=== PATIENT | female | born 1960 | race Caucasian/White ===

== ENCOUNTER → 2018-01-08 15:28 | Outpatient (CLI) | payer OTHER, SELFPAY ==
--- NOTE | 2018-01-08 15:31 | DI.RAD.S_ITS ---
PROCEDURE: XR CHEST 2V INDICATIONS: cough TECHNIQUE: 2 views of the chest were acquired. COMPARISON: None. FINDINGS: Surgical changes and devices: None. Lungs and pleura: No pleural effusions or pneumothorax. Lungs are clear. Mediastinum: Mediastinal contours are normal. Heart size is normal. Bones and chest wall: No suspicious bony abnormalities. Soft tissues appear unremarkable. IMPRESSION: Normal for age, source of current symptoms is not seen. Dictated by: Nitesh Ashraf M.D. on 01/08/2018 at 15:42 Approved by: Nitesh Ashraf M.D. on 01/08/2018 at 15:42
== END ==
PROVIDERS: PCP Family Medicine; Visit Provider Physician Assistant
DX: R05 Cough (principal)
CPT/HCPCS: 71046

== ENCOUNTER → 2020-10-06 07:04 | Outpatient (CLI) | payer OTHER, SELFPAY ==
[2020-10-06 08:22] LABS: Hematocrit 45.7 % (36-46); Hemoglobin 15.7 g/dL (12.0-16.0); Mean Corpuscular HGB Conc 34.5 % (30-36); Mean Corpuscular Hemoglobin 32.7 PG (26-34); Mean Corpuscular Volume 94.9 fL (80-100); Platelet Count 313 X10^3/uL (150-400); Red Blood Cell Count 4.81 X10^6/uL (4.0-5.2); Red Cell Distribution Width 13.4 % (11.6-14.8); White Blood Cell Count 6.8 X10^3/uL (4.5-11.0)
[2020-10-06 08:34] LABS: Alanine Aminotransferase 20 IU/L (<35); Albumin 4.1 g/dL (3.5-5.0); Albumin Globulin Ratio 1.4 (1.0-2.8); Alkaline Phosphatase 98 U/L (38-126); Aspartate Aminotransferase 25 IU/L (14-36); BUN Creatinine Ratio 14.3 (6-22); Bilirubin Total 0.4 mg/dL (0.2-1.3); Blood Urea Nitrogen 11 mg/dL (7-17); Calcium 9.8 mg/dL (8.4-10.2); Carbon Dioxide 30 mmol/L (22-32); Chloride 101 mmol/L (98-107); Cholesterol 276 mg/dL (140-199); Estimated Glomerular Filt Rate > 60.0 mL/min (>60); Glucose 116 mg/dL (80-110); HDL Cholesterol 75 mg/dL (40-60); HEMOLYSIS < 15 (0-50); LDL Cholesterol Calculated 174 mg/dL (<100); Potassium 5.1 mmol/L (3.4-5.1); Sodium 136 mmol/L (137-145); Total Protein 7.1 g/dL (6.3-8.2); Triglycerides 134 mg/dL (35-150)
[2020-10-06 11:30] LABS: Hemoglobin A1C% w Est Avg Glu 5.7 % (4.0-6.0)
== END ==
PROVIDERS: Family Provider Family Medicine; PCP Nurse Practitioner Family; Referring Provider Nurse Practitioner Family; Visit Provider Nurse Practitioner Family
DX: Z00.00 Encounter for general adult medical examination without abnormal findings (principal); Z13.6 Encounter for screening for cardiovascular disorders; R73.01 Impaired fasting glucose
CPT/HCPCS: 36415; 80053; 80061; 83036; 85027

== ENCOUNTER → 2020-11-23 08:23 | Outpatient (CLI) | payer OTHER, SELFPAY ==
--- NOTE | 2020-11-23 08:25 | DI.MG.S_ITS ---
BILATERAL DIGITAL SCREENING MAMMOGRAM 3D/2D WITH CAD: 11/23/2020 CLINICAL: Routine screening. Family history of breast cancer. Comparison is made to exams dated: 06/06/2017 mammogram, 03/28/2011 mammogram, and 06/23/2009 mammogram - [facility]. There are scattered fibroglandular elements in both breasts. Current study was also evaluated with a Computer Aided Detection (CAD) system. There is a 1.2 cm x 1.8 cm oval mass with a circumscribed margin in the right breast at 10 o'clock anterior depth 2.5 cm from the nipple. There also is an oval mass with a circumscribed margin in the right axillary tail. No other significant masses, calcifications, or other findings are seen in either breast. IMPRESSION: INCOMPLETE: NEEDS ADDITIONAL IMAGING EVALUATION The 1.2 cm x 1.8 cm oval mass in the right breast at 10 o'clock anterior depth is consistent with a cyst or a solid mass and is indeterminate. Additional views with possible ultrasound are recommended. The oval mass in the right axillary tail is consistent with a cyst or a solid mass and is indeterminate. Additional views with possible ultrasound are recommended. This exam was interpreted at Station ID: [id number]. NOTE: For mammograms, a report in lay terms will be sent to the patient. Approximately 15% of breast malignancies will not be visualized mammographically. In the management of a palpable breast mass, a negative mammogram must not discourage biopsy of a clinically suspicious lesion. Electronically Signed By: Chaitanya Andino acr/:11/23/2020 10:50:16 letter sent: Additional Imaging Needed ACR BI-RADS Category 0: Incomplete 3340F
== END ==
PROVIDERS: Family Provider Family Medicine; PCP Nurse Practitioner Family; Referring Provider Nurse Practitioner Family; Visit Provider Nurse Practitioner Family
DX: Z12.31 Encounter for screening mammogram for malignant neoplasm of breast (principal); Z80.3 Family history of malignant neoplasm of breast
CPT/HCPCS: 77063; 77067

== ENCOUNTER → 2020-12-12 13:56 | Outpatient (CLI) | payer OTHER, SELFPAY ==
--- NOTE | 2020-12-12 13:57 | DI.MG.S_ITS ---
UNILATERAL RIGHT DIGITAL DIAGNOSTIC MAMMOGRAM 3D/2D: 12/12/2020 CLINICAL: Additional evaluation requested from prior study. Comparison is made to exams dated: 11/23/2020 mammogram, 06/18/2017 ultrasound, and 06/06/2017 mammogram - [facility]. There are scattered fibroglandular elements in right breast. There is a 2.1 cm oval equal density mass with an obscured and circumscribed margin in the right breast at 9 o'clock anterior depth. There also is a 1.3 cm oval low density mass with an indistinct and circumscribed margin in the right breast at 9 o'clock posterior depth. No other significant masses or calcifications are seen in the breast. IMPRESSION: INCOMPLETE: NEEDS ADDITIONAL IMAGING EVALUATION The 2.1 cm oval equal density mass in the right breast at 9 o'clock anterior depth is indeterminate. An ultrasound is recommended. The 1.3 cm oval low density mass in the right breast at 9 o'clock posterior depth is indeterminate. An ultrasound is recommended. Ultrasound will be performed immediately following the current exam. This exam was interpreted at Station ID: [id number]. NOTE: For mammograms, a report in lay terms will be sent to the patient. Approximately 15% of breast malignancies will not be visualized mammographically. In the management of a palpable breast mass, a negative mammogram must not discourage biopsy of a clinically suspicious lesion. Electronically Signed By: Kenan Simms M.D. dddamian/:12/12/2020 14:34:09 ACR BI-RADS Category 0: Incomplete 3340F
--- NOTE | 2020-12-12 15:07 | DI.US.S_ITS ---
LIMITED ULTRASOUND OF RIGHT BREAST: 12/12/2020 CLINICAL: Patient returns today to evaluate two focal asymmetries in the right breast. Comparison is made to exams dated: 12/12/2020 mammogram, 06/18/2017 ultrasound, 11/23/2020 mammogram, 06/06/2017 mammogram, 03/28/2011 mammogram, and 06/23/2009 mammogram - [facility]. Color flow and real-time ultrasound of the right breast 9 o'clock region were performed on the areas of interest. There is a 1 cm x 0.8 cm x 0.4 cm oval cyst in the right breast at 9 o'clock anterior depth 3 cm from the nipple. This oval cyst is hypoechoic with a well-defined boundary and internal echoes. This correlates with mammography findings. Color flow imaging demonstrates that there is no vascularity present. There also is a 1.6 cm x 0.7 cm x 0.9 cm oval cyst with a thickened wall in the right breast at 9 o'clock posterior depth 17 cm from the nipple. This oval cyst is hypoechoic with a well-defined boundary and internal echoes. This correlates with mammography findings. Color flow imaging demonstrates that there is no vascularity present. Additionally, there is a 1 cm x 0.4 cm x 0.8 cm oval cyst in the right breast at 9 o'clock posterior depth. This oval cyst is hypoechoic with a well-defined boundary, internal echoes, and posterior acoustic enhancement. This correlates with mammography findings. Color flow imaging demonstrates that there is no vascularity present. In addition, there is a benign 1.7 cm x 0.9 cm x 1.7 cm oval cyst in the right breast at 9 o'clock anterior depth 3 cm from the nipple. This oval cyst is anechoic with a well-defined boundary and posterior acoustic enhancement. This correlates with mammography findings. Color flow imaging demonstrates that there is no vascularity present. IMPRESSION: PROBABLY BENIGN The 1 cm x 0.8 cm x 0.4 cm oval cyst in the right breast at 9 o'clock anterior depth is consistent with a complicated cyst and is probably benign. A follow-up ultrasound in 6 months is recommended. The 1.6 cm x 0.7 cm x 0.9 cm oval cyst in the right breast at 9 o'clock posterior depth is consistent with a complicated cyst and is probably benign. A follow-up ultrasound in 6 months is recommended. The 1 cm x 0.4 cm x 0.8 cm oval cyst in the right breast at 9 o'clock posterior depth is consistent with a complicated cyst and is probably benign. A follow-up ultrasound in 6 months is recommended. The 1.7 cm x 0.9 cm x 1.7 cm oval cyst in the right breast at 9 o'clock anterior depth is consistent with a simple cyst and is benign. A follow-up ultrasound in 6 months is recommended to demonstrate stability. This exam was interpreted at Station ID: [id number]. Electronically Signed By: Kenan Simms M.D. dddamian/:12/12/2020 15:52:31 letter sent: Followup Recommended Ultrasound BI-RADS: 3 Probably benign
== END ==
PROVIDERS: Family Provider Family Medicine; PCP Nurse Practitioner Family; Referring Provider Nurse Practitioner Family; Visit Provider Nurse Practitioner Family
DX: R92.8 Other abnormal and inconclusive findings on diagnostic imaging of breast (principal); N60.01 Solitary cyst of right breast
CPT/HCPCS: 76642; 77065; G0279

== ENCOUNTER → 2020-12-21 14:42 | Outpatient (CLI) | payer OTHER, SELFPAY ==
--- NOTE | 2020-12-21 14:43 | DI.RAD.S_ITS ---
PROCEDURE: XR HUMERUS LT 2V INDICATIONS: left arm pain TECHNIQUE: 2 views of the humerus were acquired. COMPARISON: None. FINDINGS: Bones: No acute, displaced fracture or dislocation. Osteophytosis about the AC joint. No suspicious bony lesions. Soft tissues: No suspicious soft tissue calcifications. IMPRESSION: No acute abnormality. Dictated by: Cristóbal Anderson M.D. on 12/21/2020 at 15:16 Approved by: Cristóbal Anderson M.D. on 12/21/2020 at 15:17
== END ==
PROVIDERS: Family Provider Family Medicine; PCP Nurse Practitioner Family; Referring Provider Nurse Practitioner Family; Visit Provider Nurse Practitioner Family
DX: M79.602 Pain in left arm (principal)
CPT/HCPCS: 73060

== ENCOUNTER → 2021-05-24 07:01 | Outpatient (CLI) | payer OTHER, SELFPAY ==
[2021-05-24 08:37] LABS: Cholesterol 292 mg/dL (140-199); HDL Cholesterol 87 mg/dL (40-60); LDL Cholesterol Calculated 170 mg/dL (<100); Triglycerides 174 mg/dL (35-150)
--- NOTE | 2021-05-24 09:41 | DI.US.S_ITS ---
LIMITED ULTRASOUND OF RIGHT BREAST: 05/24/2021 CLINICAL: 6 month follow-up of cysts. Comparison is made to exams dated: 12/12/2020 ultrasound, 12/12/2020 mammogram, 11/23/2020 mammogram, and 06/18/2017 [facility]. Color flow and real-time ultrasound of the right breast 9 o'clock region were performed. Keller scale images of the real-time examination were reviewed. There is a 1 cm x 0.8 cm x 0.4 cm oval cyst in the right breast at 9 o'clock anterior depth 3 cm from the nipple. This oval cyst is hypoechoic with a well-defined boundary and internal echoes. Color flow imaging demonstrates that there is no vascularity present. This is stable. There also is a 1.6 cm x 0.5 cm x 1.5 cm oval cyst with a thickened wall in the right breast at 9 o'clock posterior depth 17 cm from the nipple. This oval cyst is hypoechoic with a well-defined boundary and internal echoes. Color flow imaging demonstrates that there is no vascularity present. This has not significantly changed. Additionally, there is a 1.1 cm x 0.4 cm x 0.7 cm oval cyst in the right breast at 9 o'clock posterior depth. This oval cyst is hypoechoic with a well-defined boundary, internal echoes, and posterior acoustic enhancement. Color flow imaging demonstrates that there is no vascularity present. This is stable. In addition, there is a benign 1.6 cm oval cyst in the right breast at 9 o'clock anterior depth 3 cm from the nipple. This is stable and is a simple cyst. IMPRESSION: PROBABLY BENIGN Minimally complicated and simple cysts in the right breast are relatively stable. The 1 cm cyst in the right breast at 9 o'clock anterior depth is consistent with a complicated cyst and is probably benign. The 1.6 cm cyst in the right breast at 9 o'clock posterior depth is consistent with a complicated cyst and is probably benign. The 1.1 cm cyst in the right breast at 9 o'clock posterior depth is consistent with a complicated cyst and is probably benign. . The 1.7 cm cyst in the right breast at 9 o'clock anterior depth is consistent with a simple cyst and is benign. A follow-up right ultrasound in 6 months is recommended to demonstrate stability. Future imaging is recommended as follows: 12/12/2021 mammogram. Findings and recommendations were conveyed to the patient at time of exam. This exam was interpreted at Station ID: [id number]. Electronically Signed By: Leana lópez/:05/24/2021 10:27:40 letter sent: Followup Recommended Ultrasound BI-RADS: 3 Probably benign
== END ==
PROVIDERS: Family Provider Family Medicine; PCP Nurse Practitioner Family; Referring Provider Nurse Practitioner Family; Visit Provider Nurse Practitioner Family
DX: R92.8 Other abnormal and inconclusive findings on diagnostic imaging of breast (principal); N60.01 Solitary cyst of right breast; E78.2 Mixed hyperlipidemia
CPT/HCPCS: 36415; 76642; 80061

== ENCOUNTER → 2021-09-16 11:57 | Outpatient (CLI) | payer OTHER, SELFPAY ==
--- NOTE | 2021-09-16 11:59 | DI.RAD.S_ITS ---
PROCEDURE: XR KNEE LT 3V INDICATIONS: left knee pain TECHNIQUE: 3 views of the knee were acquired. COMPARISON: None. FINDINGS: Bones: No fractures or dislocations. No suspicious bony lesions. Mild tricompartmental degenerative changes. Soft tissues: Large suprapatellar joint effusion. No suspicious soft tissue calcifications. IMPRESSION: 1. Mild tricompartmental degenerative changes. 2. Large suprapatellar joint effusion. Dictated by: Chaitanya Andino M.D. on 09/16/2021 at 12:04 Approved by: Chaitanya Andino M.D. on 09/16/2021 at 12:06
== END ==
PROVIDERS: Family Provider Family Medicine; PCP Family Medicine; Referring Provider Family Medicine; Visit Provider Family Medicine
DX: M25.462 Effusion, left knee (principal); M25.562 Pain in left knee; G89.29 Other chronic pain
CPT/HCPCS: 73562

== ENCOUNTER → 2021-09-26 07:10 | Outpatient (CLI) | payer OTHER, SELFPAY ==
[2021-09-26 08:45] LABS: Hematocrit 45.6 % (36-46); Hemoglobin 15.9 g/dL (12.0-16.0); Mean Corpuscular HGB Conc 34.9 % (30-36); Mean Corpuscular Hemoglobin 34.7 PG (26-34); Mean Corpuscular Volume 99.4 fL (80-100); Platelet Count 271 X10^3/uL (150-400); Red Blood Cell Count 4.59 X10^6/uL (4.0-5.2); Red Cell Distribution Width 13.3 % (11.6-14.8)
[2021-09-26 09:38] LABS: Alanine Aminotransferase 23 IU/L (<35); Albumin 3.9 g/dL (3.5-5.0); Albumin Globulin Ratio 1.3 (1.0-2.8); Alkaline Phosphatase 103 U/L (38-126); Aspartate Aminotransferase 27 IU/L (14-36); BUN Creatinine Ratio 15.3 (6-22); Bilirubin Total 0.6 mg/dL (0.2-1.3); Blood Urea Nitrogen 11 mg/dL (7-17); Calcium 8.9 mg/dL (8.4-10.2); Carbon Dioxide 32 mmol/L (22-32); Chloride 98 mmol/L (98-107); Cholesterol 249 mg/dL (140-199); Estimated Glomerular Filt Rate > 60 mL/min (>60); Glucose 111 mg/dL (80-110); HDL Cholesterol 84 mg/dL (40-60); HEMOLYSIS < 15 (0-50); LDL Cholesterol Calculated 141 mg/dL (<100); Potassium 4.7 mmol/L (3.4-5.1); Sodium 136 mmol/L (137-145); Total Protein 6.9 g/dL (6.3-8.2); Triglycerides 118 mg/dL (35-150)
[2021-09-26 11:04] LABS: TSH w/ Reflex to FT4 1.33 uIU/mL (0.47-4.68)
[2021-09-26 15:24] LABS: Hemoglobin A1C% w Est Avg Glu 5.9 % (4.0-6.0)
== END ==
PROVIDERS: Family Provider Family Medicine; PCP Family Medicine; Referring Provider Family Medicine; Visit Provider Family Medicine
DX: F32.9 Major depressive disorder, single episode, unspecified (principal); F41.9 Anxiety disorder, unspecified; Z00.00 Encounter for general adult medical examination without abnormal findings; E78.2 Mixed hyperlipidemia; R73.9 Hyperglycemia, unspecified; Z13.6 Encounter for screening for cardiovascular disorders
CPT/HCPCS: 36415; 80053; 80061; 83036; 84443; 85027

== ENCOUNTER → 2021-10-19 15:21 | Outpatient (CLI) | payer OTHER, SELFPAY ==
--- NOTE | 2021-10-19 15:22 | DI.CT.S_ITS ---
PROCEDURE: CT CHEST WO CON INDICATIONS: chest girth with rapid increase w/increased weight gain TECHNIQUE: Noncontrast 2.0-2.5 mm thick sections acquired from the pulmonary apices to the posterior costophrenic angles. 7 mm thick axial MIP, and 5 mm coronal and sagittal reformats were then acquired. A low radiation dose technique was utilized. COMPARISON: None. FINDINGS: Image quality: Diagnostic, given the low radiation dose technique. Lungs and pleura: No suspicious pulmonary nodules are seen. No focal infiltrates are seen. No pneumothorax or pleural effusions are seen. The central airways are patent. Mediastinum: Heart size is normal. No pericardial effusion. No mediastinal adenopathy by size criteria. Thoracic aorta and central pulmonary arteries are normal in size. Atherosclerotic calcification is noted. Esophagus is normal in caliber. No hiatal hernia. Bones and chest wall: No suspicious bony lesions. No vertebral body compression fractures. Age-appropriate bony degenerative changes are seen. No axillary or supraclavicular adenopathy by size criteria. Thyroid gland demonstrates no significant noncontrast abnormality. Abdomen: Visualized upper abdomen solid organs and bowel loops appear normal in the absence of contrast. IMPRESSION: No suspicious pulmonary nodules are seen. LUNG-RADS 1; Recommend annual screening for lung cancer with low dose CT, as long as the patient meets the screening criteria. Dictated by: Ousmane Moody M.D. on 10/19/2021 at 16:26 Approved by: Ousmane Moody M.D. on 10/19/2021 at 16:27
== END ==
PROVIDERS: Family Provider Family Medicine; PCP Family Medicine; Referring Provider Family Medicine; Visit Provider Family Medicine
DX: R92.8 Other abnormal and inconclusive findings on diagnostic imaging of breast (principal); R63.5 Abnormal weight gain
CPT/HCPCS: 71250

== ENCOUNTER → 2021-11-09 10:10 | Outpatient (CLI) | payer OTHER, SELFPAY ==
--- NOTE | 2021-11-09 10:12 | DI.US.S_ITS ---
LIMITED ULTRASOUND OF RIGHT BREAST: 11/09/2021 CLINICAL: Short term follow up of the right breast. No prior exams were available for comparison. Color flow and real-time ultrasound of the right breast 9 o'clock region were performed on the areas of interest. Keller scale images of the real-time examination were reviewed. There is a cyst in the right breast at 9 o'clock anterior depth. This cyst is anechoic. There also is a stable cyst in the right breast at 9 o'clock posterior depth. This correlates with mammography findings. Additionally, there is an oval cyst in the right breast at 9 o'clock posterior depth. IMPRESSION: BENIGN There is no sonographic evidence of malignancy. The cyst in the right breast at 9 o'clock anterior depth is consistent with a simple cyst and is benign. The stable cyst in the right breast at 9 o'clock posterior depth is consistent with a simple cyst and is benign. The oval cyst in the right breast at 9 o'clock posterior depth is consistent with a simple cyst and is benign. Return to annual mammogram screening schedule is recommended. This exam was interpreted at Station ID: [id number]. Electronically Signed By: Susan daniels/:11/09/2021 12:01:39 letter sent: Normal Exam Ultrasound BI-RADS: 2 Benign
--- NOTE | 2021-11-09 10:12 | DI.MG.S_ITS ---
BILATERAL DIGITAL DIAGNOSTIC MAMMOGRAM 3D/2D: 11/09/2021 CLINICAL: Short term follow up of the right breast, due for bilateral imaging. Comparison is made to exams dated: 05/24/2021 ultrasound, 12/12/2020 mammogram, 12/12/2020 ultrasound, 11/23/2020 mammogram, and 06/18/2017 ultrasound - [facility]. There are scattered areas of fibroglandular density in both breasts (category b / 25%-50% glandular tissue). There is a stable oval mass in the right breast at 9 o'clock anterior depth. There also is a mass in the right breast at 9 o'clock posterior depth. No other significant masses, calcifications, or other findings are seen in either breast. IMPRESSION: INCOMPLETE: NEEDS ADDITIONAL IMAGING EVALUATION The stable oval mass in the right breast at 9 o'clock anterior depth is indeterminate. The mass in the right breast at 9 o'clock posterior depth is indeterminate. A targeted ultrasound of the right breast is recommended and will be performed immediately following this exam. Based on the Tyrer Cuzick model (a risk assessment model) the patient's lifetime risk is 10.9% and her 10 year risk is 4.9%. According to the ACR, ACS, and NCCN guidelines, an annual breast MRI exam along with mammogram is recommended if the patient's lifetime risk is 20% or greater. This exam was interpreted at Station ID: [id number]. NOTE: For mammograms, a report in lay terms will be sent to the patient. Approximately 15% of breast malignancies will not be visualized mammographically. In the management of a palpable breast mass, a negative mammogram must not discourage biopsy of a clinically suspicious lesion. Electronically Signed By: Susan Scherer M.D. lk/:11/09/2021 10:54:05 ACR BI-RADS Category 0: Incomplete 3340F
== END ==
PROVIDERS: Family Provider Family Medicine; PCP Family Medicine; Referring Provider Family Medicine; Visit Provider Family Medicine
DX: R92.8 Other abnormal and inconclusive findings on diagnostic imaging of breast (principal); N60.01 Solitary cyst of right breast
CPT/HCPCS: 76642; 77066; G0279

== ENCOUNTER → 2022-12-28 10:51 | Outpatient (CLI) | payer OTHER, SELFPAY ==
--- NOTE | 2022-12-28 | DI.MG.S_ITS ---
BILATERAL DIGITAL SCREENING MAMMOGRAM 3D/2D WITH CAD: 12/28/2022 CLINICAL: Routine screening. Family history of breast cancer. Comparison is made to exams dated: 11/09/2021 mammogram, 12/12/2020 mammogram, and 11/23/2020 mammogram - [facility]. There are scattered areas of fibroglandular density in both breasts (category b / 25%-50% glandular tissue). Current study was also evaluated with a Computer Aided Detection (CAD) system. There are benign calcifications in both breasts. No significant masses, calcifications, or other findings are seen in either breast. There has been no significant interval change. IMPRESSION: BENIGN There is no mammographic evidence of malignancy. A 1 year screening mammogram is recommended. Based on the Tyrer Cuzick model (a risk assessment model) the patient's lifetime risk is 10.5% and her 10 year risk is 4.9%. According to the ACR, ACS, and NCCN guidelines, an annual breast MRI exam along with mammogram is recommended if the patient's lifetime risk is 20% or greater. This exam was interpreted at Station ID: [id number]. NOTE: For mammograms, a report in lay terms will be sent to the patient. Approximately 15% of breast malignancies will not be visualized mammographically. In the management of a palpable breast mass, a negative mammogram must not discourage biopsy of a clinically suspicious lesion. Electronically Signed By: Susan daniels/radha:12/28/2022 14:43:49 letter sent: Normal Exam ACR BI-RADS Category 2: Benign Finding(s) 3342F
== END ==
PROVIDERS: Family Provider Family Medicine; PCP Family Medicine; Referring Provider Family Medicine; Visit Provider Family Medicine
DX: Z12.31 Encounter for screening mammogram for malignant neoplasm of breast (principal); Z80.3 Family history of malignant neoplasm of breast
CPT/HCPCS: 77063; 77067

== ENCOUNTER → 2023-04-10 09:05 | Outpatient (CLI) | payer OTHER, SELFPAY ==
[2023-04-10 10:21] LABS: Add Manual Diff / Slide Review NO; Basophils Absolute Auto 100 /uL (0-100); Eosinophils Absolute Auto 100 /uL (0-450); Eosinophils Percent Auto 0.9 % (2-4); Hemoglobin 15.8 g/dL (12.0-16.0); Lymphocytes Absolute Auto 1200 /uL (1100-4500); Lymphocytes Percent Auto 20.1 % (25-40); Mean Corpuscular HGB Conc 34.4 % (30-36); Mean Corpuscular Hemoglobin 35.3 PG (26-34); Mean Corpuscular Volume 102.6 fL (80-100); Monocytes Absolute Auto 500 /uL (0-900); Monocytes Percent Auto 8.1 % (3-14); Neutrophils Absolute Auto 4200 /uL (1500-7000); Neutrophils Percent Auto 69.9 % (50-75); Platelet Count 318 X10^3/uL (150-400); Red Blood Cell Count 4.48 X10^6/uL (4.0-5.2); Red Cell Distribution Width 13.5 % (11.6-14.8)
[2023-04-10 10:56] LABS: Alanine Aminotransferase 22 IU/L (<35); Albumin Globulin Ratio 1.1 (1.0-2.8); Alkaline Phosphatase 106 U/L (38-126); Aspartate Aminotransferase 25 IU/L (14-36); BUN Creatinine Ratio 13.2 (6-22); Bilirubin Total 0.6 mg/dL (0.2-1.3); Blood Urea Nitrogen 9 mg/dL (7-17); Calcium 9.7 mg/dL (8.4-10.2); Carbon Dioxide 34 mmol/L (22-32); Chloride 96 mmol/L (98-107); Cholesterol 270 mg/dL (140-199); Estimated Glomerular Filt Rate > 60 mL/min (>60); Globulin 3.6 g/dL (1.7-4.1); Glucose 105 mg/dL (80-110); HDL Cholesterol 86 mg/dL (40-60); HEMOLYSIS < 15 (0-50); LDL Cholesterol Calculated 156 mg/dL (<100); Potassium 4.8 mmol/L (3.4-5.1); Sodium 136 mmol/L (137-145); Total Protein 7.6 g/dL (6.3-8.2); Triglycerides 138 mg/dL (35-150)
[2023-04-10 11:23] LABS: Creatinine Urine Random 32.9 mg/dL
[2023-04-10 11:29] LABS: TSH w/ Reflex to FT4 0.99 uIU/mL (0.47-4.68)
[2023-04-10 11:50] LABS: Microalbumin Urine Random < 0.6 mg/dL (0-1.6)
== END ==
LOC: LAB 09:09
PROVIDERS: Family Provider Family Medicine; PCP Family Medicine; Referring Provider Family Medicine; Visit Provider Family Medicine
DX: E78.2 Mixed hyperlipidemia (principal); F41.9 Anxiety disorder, unspecified; I87.2 Venous insufficiency (chronic) (peripheral)
CPT/HCPCS: 36415; 80053; 80061; 82043; 82570; 84443; 85025

== ENCOUNTER → 2023-07-03 13:36 | Outpatient (CLI) | payer OTHER, SELFPAY ==
--- NOTE | 2023-07-03 13:37 | DI.CT.S_ITS ---
PROCEDURE: CT LUNG LOW DOSE SCREENING INDICATIONS: 30+ smoking hx TECHNIQUE: Noncontrast 2.0-2.5 mm thick sections acquired from the pulmonary apices to the posterior costophrenic angles. 7 mm thick axial MIP, and 5 mm coronal and sagittal reformats were then acquired. For radiation dose reduction, the following was used: automated exposure control, adjustment of mA and/or kV according to patient size. COMPARISON: [facility], CT, CT CHEST WO [facility], 10/19/2021, 15:42. FINDINGS: Image quality: Diagnostic. Lower Neck: No enlarged lymph nodes. Thyroid: No thyroid nodules which require sonographic follow up, per consensus guidelines. Axillae: No enlarged lymph nodes. Chest Wall: Unremarkable. Bones: Unremarkable. Lungs and Pleura: No pneumothorax or pleural effusions. No consolidation or suspicious nodules. mild dependent lower lobe pulmonary scarring, stable Heart: Heart size is normal. No pericardial effusion. Thoracic Vessels: The aorta and pulmonary arteries demonstrate normal size. Mediastinum and Ashley: No enlarged lymph nodes. Esophagus: No wall thickening. No hiatal hernia. Upper Abdomen: Visualized upper abdomen solid organs and bowel loops appear normal. IMPRESSION: No suspicious pulmonary nodules. LUNG-RADS 1; continued annual screening, if eligible. Approved by: Rojas Hinojosa M.D. on 07/03/2023 at 19:44
--- NOTE | 2023-07-03 13:37 | DI.RAD.S_ITS ---
PROCEDURE: XR DEXA AXIAL SKELETON INDICATIONS: post-menopausal COMPARISON: None. FINDINGS: Lumbar Spine: Bone mineral density 0.962 g/cm2, T score -0.8. Left Hip: Bone mineral density 0.794 g/cm2, T score -1.2. Left Femoral Neck: Bone mineral density 0.537 g/cm2, T score -2.8. Right Hip: Bone mineral density 0.836 g/cm2, T score -0.9. Right Femoral Neck: Bone mineral density 0.635 g/cm2, T score -1.9. Fracture Risk Calculation (when applicable): FRAX not provided due to osteoporosis. (T score greater or equal to -1.0 to: NORMAL) (T score from -1.1 to -2.4: OSTEOPENIA) (T score less than or equal to -2.5: OSTEOPOROSIS) IMPRESSION: Osteoporosis at the left femoral neck. Dictated by: Jd Andrews M.D. on 07/04/2023 at 11:29 Approved by: Jd Andrews M.D. on 07/04/2023 at 11:30
== END ==
LOC: CT 13:37
PROVIDERS: Family Provider Family Medicine; PCP Family Medicine; Referring Provider Family Medicine; Visit Provider Family Medicine
DX: F17.210 Nicotine dependence, cigarettes, uncomplicated (principal); Z78.0 Asymptomatic menopausal state; Z12.2 Encounter for screening for malignant neoplasm of respiratory organs; M81.0 Age-related osteoporosis without current pathological fracture
CPT/HCPCS: 71271; 77080

== ENCOUNTER → 2024-01-10 08:02 | Outpatient (CLI) | payer OTHER, SELFPAY ==
--- NOTE | 2024-01-10 | DI.MG.S_ITS ---
BILATERAL DIGITAL SCREENING MAMMOGRAM 3D/2D WITH CAD: 01/10/2024 CLINICAL: Routine screening. Family history of breast cancer. Comparison is made to exams dated: 12/28/2022 mammogram, 11/09/2021 mammogram, and 11/23/2020 mammogram - [facility]. There are scattered areas of fibroglandular density (category b / 25%-50% glandular tissue). Current study was also evaluated with a Computer Aided Detection (CAD) system. There are benign calcifications in both breasts. No significant masses, calcifications, or other findings are seen in either breast. There has been no significant interval change. IMPRESSION: BENIGN There is no mammographic evidence of malignancy. A 1 year screening mammogram is recommended. Based on the Tyrer Cuzick model (a risk assessment model) the patient's lifetime risk is 10.1% and her 10 year risk is 4.9%. According to the ACR, ACS, and NCCN guidelines, an annual breast MRI exam along with mammogram is recommended if the patient's lifetime risk is 20% or greater. This exam was interpreted at Station ID: [id number]. NOTE: For mammograms, a report in lay terms will be sent to the patient. Approximately 15% of breast malignancies will not be visualized mammographically. In the management of a palpable breast mass, a negative mammogram must not discourage biopsy of a clinically suspicious lesion. Electronically Signed By: Jd barone/radha:01/10/2024 14:39:37 letter sent: Normal Exam ACR BI-RADS Category 2: Benign
[2024-01-10 09:38] LABS: Add Manual Diff / Slide Review NO; Basophils Absolute Auto 100 /uL (0-100); Eosinophils Absolute Auto 0 /uL (0-450); Eosinophils Percent Auto 0.6 % (2-4); Hematocrit 45.5 % (36-46); Hemoglobin 15.6 g/dL (12.0-16.0); Lymphocytes Absolute Auto 1100 /uL (1100-4500); Lymphocytes Percent Auto 18.5 % (25-40); Mean Corpuscular HGB Conc 34.3 % (30-36); Mean Corpuscular Hemoglobin 36.2 PG (26-34); Mean Corpuscular Volume 105.6 fL (80-100); Monocytes Absolute Auto 500 /uL (0-900); Monocytes Percent Auto 7.6 % (3-14); Neutrophils Absolute Auto 4300 /uL (1500-7000); Neutrophils Percent Auto 72.3 % (50-75); Platelet Count 319 X10^3/uL (150-400); Red Blood Cell Count 4.31 X10^6/uL (4.0-5.2); Red Cell Distribution Width 14.3 % (11.6-14.8)
[2024-01-10 10:02] LABS: Cholesterol 304 mg/dL (140-199); Triglycerides 123 mg/dL (35-150)
[2024-01-10 10:19] LABS: HDL Cholesterol 119 mg/dL (40-60); LDL Cholesterol Calculated 160 mg/dL (<100)
[2024-01-10 10:50] LABS: Vitamin B12 249 pg/mL (239-931)
[2024-01-11 07:40] LABS: Apolipoprotein B 133 mg/dL (<90)
== END ==
PROVIDERS: Family Provider Family Medicine; PCP Family Medicine; Referring Provider Family Medicine; Visit Provider Family Medicine
DX: Z12.31 Encounter for screening mammogram for malignant neoplasm of breast (principal); E78.2 Mixed hyperlipidemia; Z80.3 Family history of malignant neoplasm of breast
CPT/HCPCS: 36415; 77063; 77067; 80061; 82172; 82607; 83695; 85025

== ENCOUNTER → 2024-09-17 09:38 | Outpatient (CLI) | payer MEDICARE, SELFPAY ==
[2024-09-17 10:33] LABS: Add Manual Diff / Slide Review NO; Hematocrit 45.2 % (36-46); Hemoglobin 15.5 g/dL (12.0-16.0); Lymphocytes Absolute Auto 1300 /uL (1100-4500); Mean Corpuscular HGB Conc 34.3 % (30-36); Mean Corpuscular Hemoglobin 34.3 PG (26-34); Mean Corpuscular Volume 100.0 fL (80-100); Platelet Count 304 X10^3/uL (150-400)
[2024-09-17 10:44] LABS: Cholesterol 265 mg/dL (140-199); HDL Cholesterol 74 mg/dL (40-60); Triglycerides 113 mg/dL (35-150)
[2024-09-17 11:49] LABS: Folate 7.2 ng/mL (2.76-20.0); Vitamin B12 247 pg/mL (239-931)
== END ==
PROVIDERS: Family Provider Family Medicine; PCP Family Medicine; Referring Provider Family Medicine; Visit Provider Family Medicine
DX: E78.2 Mixed hyperlipidemia (principal); F41.9 Anxiety disorder, unspecified
CPT/HCPCS: 36415; 80061; 82172; 82607; 82746; 85025

== ENCOUNTER → 2024-12-29 14:43 | Outpatient (CLI) | payer MEDICARE, SELFPAY ==
--- NOTE | 2024-12-29 14:44 | DI.CT.S_ITS ---
PROCEDURE: CT LUNG LOW DOSE SCREENING INDICATIONS: smoking hx TECHNIQUE: Noncontrast 2.0-2.5 mm thick sections acquired from the pulmonary apices to the posterior costophrenic angles. 7 mm thick axial MIP, and 5 mm coronal and sagittal reformats were then acquired. For radiation dose reduction, the following was used: automated exposure control, adjustment of mA and/or kV according to patient size. COMPARISON: [facility], CT, CT LUNG LOW DOSE SCREENING, 07/03/2023, 13:42. FINDINGS: Image quality: Diagnostic Lungs: No pleural effusion pneumothorax. No pulmonary edema or focal consolidation. No suspicious pulmonary nodule. Soft tissue/mediastinal findings: Mild calcification of the thoracic aorta. No thoracic aortic aneurysm. Enlargement of the main pulmonary artery, raising concern for pulmonary arterial hypertension. Heart is normal in size. No pericardial effusion. Severe calcification of the RCA. No mediastinal hilar, or axillary lymphadenopathy. Visualized upper abdomen: Marked thickening of the left adrenal gland, unchanged from prior exam. Bones: No suspicious lytic or blastic lesion. Bridging osteophytes of the thoracic spine, consistent with diffuse idiopathic skeletal hyperostosis. IMPRESSION: No suspicious pulmonary nodules. additional chronic findings described above. LUNG-RADS 1; continued annual screening, if eligible. Clinically Significant Non-pulmonary Findings: None. Dictated by: April Ochoa M.D. on 12/29/2024 at 16:05 Approved by: April Ochoa M.D. on 12/29/2024 at 16:14
--- NOTE | 2024-12-29 14:44 | DI.MG.S_ITS ---
MM screening mammo BI: 12/29/2024. BI-RADS: 2 CLINICAL: 64-year old female for bilateral screening mammogram. Tyrer-Cuzick lifetime risk of 8.7%. Current reported family history of breast cancer: mother. PRIOR EXAMS 01/10/2024, 12/28/2022, 11/09/2021, 05/24/2021. MAMMOGRAPHY TECHNIQUE: 2D and 3D (tomosynthesis) digital mammographic views obtained, with additional images as needed for full coverage. Current study was also evaluated with a Computer Aided Detection (CAD) system. DENSITY A. The breasts are almost entirely fatty. MAMMOGRAPHY FINDINGS Right: Benign-appearing masses and calcifications noted on the right. There are no suspicious masses, calcifications, or other findings in the breast. No significant change from comparison. Left: Benign-appearing calcifications noted on the left. There are no suspicious masses, calcifications, or other findings in the breast. No significant change from comparison. IMPRESSION: * No evidence of malignancy with benign findings. RECOMMENDATIONS Bilateral * Annual screening mammography. OVERALL ASSESSMENT CATEGORY BI-RADS-2: Benign. The [employer] recommends annual screening mammography beginning at age 40 for women with average risk of breast cancer. ELECTRONICALLY SIGNED: Leana Raya M.D. on 12/31/2024 at 01:10:03 PM PT Interpreting Station ID: [id number]
== END ==
LOC: MAMMO 14:44
PROVIDERS: PCP Family Medicine; Referring Provider Family Medicine; Visit Provider Family Medicine
DX: Z12.31 Encounter for screening mammogram for malignant neoplasm of breast (principal); F17.210 Nicotine dependence, cigarettes, uncomplicated; R92.313 Mammographic fatty tissue density, bilateral breasts; R92.1 Mammographic calcification found on diagnostic imaging of breast; Z80.3 Family history of malignant neoplasm of breast
CPT/HCPCS: 71271; 77063; 77067